=== PATIENT | female | born 1980 | race Caucasian/White ===

== ENCOUNTER 2018-10-06 16:56 | Emergency (ER) | payer SELFPAY ==
[~2018-10-06] VITALS: Ht 154.9 cm; Wt 71.8 kg
[2018-10-06 17:05] VITALS: BP 133/85
--- NOTE | 2018-10-06 17:07 | NUR ---
PT AMBULATES BACK TO THE LOBBY
--- NOTE | 2018-10-06 17:20 | NUR ---
PT. CAME INTO THE ED DUE TO FACIAL NUMBNESS AND CHARLES X 2 PM.TODAY. PT. STATES " I WAS JUST SITTING THERE AND I FELT LIKE THE L SIDE OF MY FACE GOT NUMB AND I HAVE A CHARLES". 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 PERRLA 3MM BRISK BILAT. DENIES N/V/D. PT. REPORTS BLURRY VISION. RR EVEN AND UNLABORED. PT ABLE TO SPEAK IN FULL AND COMPLETE SENTENCES. DENIES ANY FALLS OR INJURY. WILL CONTINUE TO MONITOR. ER MD MADE AWARE. SAFETY PRECAUTIONS IMPLEMENTED.
[2018-10-06] MEDS ORDERED: KETOROLAC 30 MG/ML VIAL IM ONE (18:15)
[2018-10-06 18:42] VITALS: BP 129/82
--- NOTE | 2018-10-06 18:43 | NUR ---
Patient discharged with v/s stable. Written and verbal after care instructions given and explained. Patient alert, oriented and verbalized understanding of instructions. Ambulatory with steady gait. All questions addressed prior to discharge. ID band removed. Patient advised to follow up with PMD. Rx of IBUPROPHEN given. Patient educated on indication of medication including possible reaction and side effects. Opportunity to ask questions provided and answered.
== END 2018-10-06 18:43 | disposition home or self-care (01) ==
LOC: MED 16:56
DX: G44.209 Tension-type headache, unspecified, not intractable (principal)
CPT/HCPCS: 96372; 99283; J1885

== ENCOUNTER 2019-01-10 03:09 | Emergency (ER) | payer SELFPAY ==
[~2019-01-10] VITALS: Ht 154.9 cm; Wt 72.6 kg
[2019-01-10 03:16] VITALS: BP 119/85
--- NOTE | 2019-01-10 03:16 | NUR ---
TO BED # 2 AMBULATORY, VSS REPORT GIVEN TO REGAN HAMPTON
--- NOTE | 2019-01-10 03:20 | NUR ---
BIB FAMILY C/O COUGH, SOB X3 DAYS, RHINORHEA, BODYACHES. DENIES N/V/D; SKIN IS PINK/WARM/DRY; AAOX4 WITH EVEN AND STEADY GAIT; LUNGS CLEAR BL; HR EVEN AND REGULAR; PT DENIES ANY FEVER, CP, SOB, OR COUGH AT THIS TIME; PATIENT STATES PAIN OF 0/10 AT THIS TIME; VSS; PATIENT POSITIONED FOR COMFORT; HOB ELEVATED; BEDRAILS UP X2; BED DOWN. ER MD MADE AWARE OF PT STATUS. PMH: DENIES
--- NOTE | 2019-01-10 03:27 | NUR ---
DR. HARPER AT BEDSIDE FOR EVALUATION.
[2019-01-10] MEDS ORDERED: ALBUTEROL SULFATE/IPRATROPIU 3 ML SOL IH ONE (03:30)
[2019-01-10] MEDS ORDERED: predniSONE 20 MG TAB PO ONE (03:30)
[2019-01-10] MEDS ORDERED: KETOROLAC 60 MG/2 ML VIAL IM ONE (03:30)
[2019-01-10] MEDS ORDERED: ALBUTEROL 0.083% 2.5 MG/3 ML NEBU INH ONE (03:30)
[2019-01-10 04:42] VITALS: BP 123/81
--- NOTE | 2019-01-10 04:43 | NUR ---
Patient discharged with v/s stable. Written and verbal after care instructions given and explained. Patient alert, oriented and verbalized understanding of instructions. Ambulatory with steady gait. All questions addressed prior to discharge. ID band removed. Patient advised to follow up with PMD. Rx of Prednisone, Sudafed, and Motrin given. Patient educated on indication of medication including possible reaction and side effects. Opportunity to ask questions provided and answered.
== END 2019-01-10 04:43 | disposition home or self-care (01) ==
LOC: MED 03:09
DX: J10.1 Influenza due to other identified influenza virus with other respiratory manifestations (principal); F17.210 Nicotine dependence, cigarettes, uncomplicated
CPT/HCPCS: 94640; 94760; 96372; 99284; J1885; J7512; J7613; J7620